=== PATIENT | female | born 1975 | race Caucasian/White ===

== ENCOUNTER 2023-07-26 05:19 | Emergency (ER) | payer MEDICAID ==
[~2023-07-26] VITALS: Ht 172.7 cm; Wt 100.0 kg
[2023-07-26 05:22] VITALS: BP_DIAS 103; PULSE 96; RESP 14; TEMP 98.1; O2SAT 100
[2023-07-26] MEDS ORDERED: lisinopril 10 MG tablet PO ONE (05:40)
[2023-07-26 05:42] VITALS: BP_SYST 182
== END 2023-07-26 05:49 ==
LOC: ER 05:20
DX: I10 Essential (primary) hypertension (principal); G25.81 Restless legs syndrome
CPT/HCPCS: 99283